=== PATIENT | female | born 1965 | race Caucasian/White ===

== ENCOUNTER 2020-04-21 12:04 | Outpatient (CLI) | payer OTHER, SELFPAY ==
--- NOTE | ~2020-04-21 | XR_ITS ---
EXAMINATION: XR knee LT 3V DATE: 04/21/2020 12:46 INDICATION: Left knee pain. TECHNIQUE: 3 views of left knee were obtained. COMPARISON: None. FINDINGS: Bone alignment is normal. No fracture. There is mild tricompartmental osteoarthritis. No kn ee joint effusion. IMPRESSION: 1. Mild left knee osteoarthritis. Reviewed, dictated and finalized at location B. ING MACHINE LOADER
--- NOTE | ~2020-04-21 | XR_ITS ---
EXAMINATION: XR finger 4th RT min 2V DATE: 04/21/2020 12:46 INDICATION: Swelling at the right fourth finger TECHNIQUE: Dorsal palmar, lateral and 2 oblique views of the right fourth digit were obtained COMPARISON: None FINDINGS: Bone alignment is normal. No fracture. Minimal to mild polyarticular osteoarthritis at multiple inter phalangeal joints. Bone islands at the distal radius and at the head of the fifth middle phalanx. No cortical erosions or periosteal reaction. Soft tissues are unremarkable. IMPRESSION: 1. Minimal to mild polyarticular osteoarthritis at the interphalangeal joints. No acute osseous abnor mality. Reviewed, dictated and finalized at location A. ND HAND IMPRESSION: 1. Minimal to mild polyarticular osteoarthritis at the interphalangeal joints. No acute osseous abnormality.
== END 2020-04-21 12:05 ==
LOC: MICIMG 12:05
PROVIDERS: PCP Family Medicine; Visit Provider Physician Assistant
DX: M17.12 Unilateral primary osteoarthritis, left knee (principal); M19.041 Primary osteoarthritis, right hand
CPT/HCPCS: 73140; 73562

== ENCOUNTER → 2020-06-26 16:12 | Outpatient (CLI) | payer OTHER, SELFPAY ==
--- NOTE | ~2020-06-26 | XR_ITS ---
EXAMINATION: XR thoracic spine 2V, XR lumbar spine 2-3V DATE: 06/26/2020 16:37 INDICATION: Dorsalgia TECHNIQUE: 1. AP, lateral and lateral swimmers views of the thoracic spine were obtained. 2. AP and lateral views of the lumbar spine and cone-down lateral view of the lumbosacral junction we re obtained. COMPARISON: None FINDINGS: Thoracic spine: Sagittal alignment is normal. 11 degree lower thoracic levoscoliosis measured between T9 and T12. Gayathri tebral body heights are normal. Multilevel mild disc height loss throughout the thoracic spine. Moder ate disc height loss at C5-C6 and mild disc height loss at C4-C5. Multiple surgical clips at the left of midline at the anterior base of the neck which may be related to prior left thyroidectomy. Parave rtebral soft tissues and visualized lungs are unremarkable. Lumbar spine: Alignment is normal. Vertebral body heights are normal. Mild disc height loss from L1-L2 through L4-L 5. Multilevel mild lumbar facet osteoarthritis. Visualized sacrum and sacroiliac joints are unremarka ble. IMPRESSION: Mild lower thoracic levoscoliosis with mild thoracic and lumbar spondylosis. Reviewed, dictated and finalized at location A. K PROCESSING CLERK IMPRESSION: Mild lower thoracic levoscoliosis with mild thoracic and lumbar spondylosis.
== END ==
PROVIDERS: Visit Provider Physician Assistant
DX: M47.896 Other spondylosis, lumbar region (principal)
CPT/HCPCS: 72070; 72100

== ENCOUNTER → 2020-11-25 17:55 | Outpatient (CLI) | payer OTHER, SELFPAY ==
--- NOTE | ~2020-11-25 | MM_ITS ---
EXAMINATION: MM scrn lester implant BI w phylicia HISTORY: Screening mammogram TECHNIQUE: Craniocaudal and mediolateral oblique 3-D tomosynthesis images with implant displacement a nd synthetic 2-D images were generated. Craniocaudal and mediolateral oblique views of the breasts wi thout implant displacement were obtained using full field digital mammography. CAD analysis was submi tted and interpreted. COMPARISON: 04/22/2014, 01/11/2013, 01/31/2011 BREAST PARENCHYMAL COMPOSITION: The breasts are heterogeneously dense, which may obscure small masses . FINDINGS: There is no evidence of suspicious mass, calcification, or architectural distortion to sugg est malignancy in either breast. There has been no suspicious interval change. IMPRESSION: 1. No mammographic evidence of malignancy. 2. Recommend routine screening mammography in one year. BI-RADS Category 1: Negative Reviewed, dictated and finalized at location A.
== END ==
PROVIDERS: PCP Family Medicine; Visit Provider Physician Assistant
DX: Z12.31 Encounter for screening mammogram for malignant neoplasm of breast (principal)
CPT/HCPCS: 77063; 77067

== ENCOUNTER 2021-04-15 10:17 | Outpatient (RCR) | payer OTHER, SELFPAY ==
[2021-04-15 13:19] VITALS: BP 86/57; PULSE 83; RESP 18; TEMP 36.4; O2SAT 95
[2021-04-15] MEDS: ACETAMINOPHEN 325 MG TABLET 650 MG PO (13:22)
[2021-04-15] MEDS: diphenhydrAMINE HCl CAP 25 MG CAPSULE PO (13:23)
[2021-04-15] MEDS: FAMOTIDINE 20 MG TABLET PO (13:23)
[2021-04-15] MEDS: SODIUM CHLORIDE 0.9% IV 500 ML IV CONT (13:55)
[2021-04-15 15:11] VITALS: BP 91/30
--- NOTE | 2021-04-16 10:42 | PC.NURSE ---
Spoke to Ms Tyler's and he stated she ate dinner last night and is sleeping currently. He said she is not complaining of any increase symptoms last night, so he thinks she is okay. I told him if she is still having issues and not improving she will need to go to the ER. He said she is fine, and thanked us for calling.
== END 2021-04-15 17:00 ==
LOC: AMCINF 10:17
PROVIDERS: PCP Family Medicine; Visit Provider Internal Medicine Hematology & Oncology
DX: U07.1 COVID-19 (principal)
CPT/HCPCS: 96360; A9270; J7040; M0243; Q0243

== ENCOUNTER 2023-04-20 19:06 | Emergency (ER) | payer OTHER, SELFPAY ==
--- NOTE | ~2023-04-20 | XR_ITS ---
EXAMINATION: XR chest 2V DATE: 04/20/2023 22:43 INDICATION: Palpitations. TECHNIQUE: Frontal and lateral views of the chest were obtained. COMPARISON: CT abdomen and pelvis 10/29/2014 FINDINGS: There is mild atelectasis in lingula. No pleural effusion or pneumothorax. The heart size i s normal. Breast implants are noted. IMPRESSION: 1. Mild atelectasis in lingula. Reviewed, dictated and finalized at location E. CAPTAIN
--- NOTE | 2023-04-20 19:07 | ECG_ITS ---
Measurements Intervals [place] Rate: 69 P: 40 GA: 177 QRS: 26 QRSD: 86 T: 37 QT: 346 QTc: 372 Interpretive Statements SINUS RHYTHM NO PREVIOUS ECG AVAILABLE FOR COMPARISON Electronically Signed On 04-20-2023 19:21:32 PLEASURE CRAFT SAILOR by Mindy Diaz M.D.
[2023-04-20 19:27] VITALS: BP 135/78; PULSE 69; RESP 16; TEMP 36.6; O2SAT 100
[2023-04-20 22:26] VITALS: PULSE 73
[2023-04-20 22:28] VITALS: BP 140/77; PULSE 63; RESP 15; O2SAT 98
[2023-04-20] MEDS: MECLIZINE HCL 25 MG TABLET PO (23:07)
[2023-04-20] MEDS: SODIUM CHLORIDE 0.9% IV 1,000 ML 999 ML IV CONT (23:08)
[2023-04-20 23:15] LABS: Basophils Absolute Auto 0.1 K/mm3 (0.0-0.1); Basophils Percent Auto 0.6 % (0.2-1.2); Eosinophils Absolute Auto 0.1 K/mm3 (0-0.3); Eosinophils Percent Auto 1.2 % (0-4.4); Hematocrit 39.6 % (37.0-47.0); Hemoglobin 12.9 g/dL (12.0-15.0); Immature Granulocyte Absolute 0.02 K/mm3 (0.00-0.031); Immature Granulocyte Percent A 0.3 % (0-0.5); Lymphocytes Absolute Auto 3.36 K/mm3 (0.9-3.2); Lymphocytes Percent Auto 43.1 % (18.3-44.2); Mean Corpuscular HGB Conc 32.6 g/dl (32-36); Mean Corpuscular Hemoglobin 29.5 pg (26-34); Mean Corpuscular Volume 90.4 fl (80-100); Mean Platelet Volume 12.2 fl (7.4-10.4); Monocytes Absolute Auto 0.5 K/mm3 (0.1-0.6); Monocytes Percent Auto 6.5 % (2.6-8.5); Neutrophils Absolute Auto 3.8 K/mm3 (1.3-6.7); Neutrophils Percent Auto 48.3 % (45.5-73.1); Platelet Count Result 170 k/mm3 (150-375); Red Blood Count 4.38 M/mm3 (4.2-5.4); Red Cell Distribution Width 13.2 % (11.5-14.5); White Blood Count 7.8 K/mm3 (4.5-10.0)
[2023-04-20 23:39] LABS: Alanine Aminotransferase 18 U/L (6-35); Albumin Level 4.5 g/dL (3.5-5.1); Alkaline Phosphatase 137 U/L (38-126); Anion Gap 6 mmol/L (8-16); Aspartate Amino Transferase 23 U/L (14-36); Bilirubin,Total 0.5 mg/dL (0.2-1.3); Blood Urea Nitrogen 18 mg/dL (7-17); Calcium 9.9 mg/dL (8.4-10.2); Carbon Dioxide 25 mmol/L (22-30); Chloride 108 mmol/L (98-107); Estimated CRCL calculation 60 ml/min; Estimated Glomerular Filt Rate > 60; Glucose 101 mg/dL (65-110); Magnesium 2.4 mg/dL (1.6-2.3); Potassium 3.9 mmol/L (3.4-5.0); Sodium 139 mmol/L (137-145)
[2023-04-20 23:51] LABS: Troponin I < 0.012 ng/mL (0.000-0.034)
--- NOTE | 2023-04-20 23:55 | ED.GENADULT ---
HPI - General Adult General Chief complaint: Arrhythmia/Palpitations Stated complaint: dizziness Time Seen by Provider: 04/20/23 22:23 History of Present Illness HPI narrative: Patient is a 57-year-old female who presents ER with feeling of palpitations. [place] like she was having a fluttering in her chest. Associated with lightheadedness. No loss of consciousness. No nausea vomiting or diaphoresis. She denies any sinus congestion or sore throat or cough. No chest pain or chest pressure. Has not had similar symptoms previously. Related Data Allergies Allergy/AdvReac Type Severity Reaction Status Date / Time Penicillins Allergy Unknown Nausea Verified 04/20/23 22:28 sertraline Allergy Unknown unknown Verified 04/20/23 22:28 Review of Systems Review of Systems: All systems reviewed & are unremarkable except as noted in HPI and below Constitutional: Constitutional: Reports no additional constitutional complaints ENT: Reports dizziness, Denies nasal congestion and Denies sore throat Cardiovascular: Cardiovascular: Denies chest pain, Reports rapid heart rate and Denies radiating jaw, neck or arm pain Respiratory: Respiratory: Reports no additional respiratory complaints Gastrointestinal: Gastrointestinal: Reports no additional gastrointestinal complaints Genitourinary: Genitourinary: Reports no additional female genitourinary complaints [facility] Past Medical History Medical History (Updated 04/21/23 @ 00:13 by Kendrick Akhtar MD) TASHA (generalized anxiety disorder) Insomnia MDD (major depressive disorder) Surgical History Surgical History (Updated 04/20/23 @ 23:56 by Kendrick Akhtar MD) No pertinent past surgical history Family History Family History Other Cerebrovascular accident Diabetes mellitus Family history of arthritis Family history of glaucoma Hypertension Social History Social History Smoking packs per day: 1 Smoking cigarettes per day: 20.0 Years smoked: 25 Smoking pack-years: 25.00 Smoking status: Former smoker Tobacco type: cigarettes Second hand tobacco smoke exposure: No Smoking end date: 05/15/00 Alcohol intake: current Alcohol use details: rare Substance use: never Substance use type: does not use Living arrangements: with family Occupation/Education: occupation Gender identity (if verbalized by the patient): Female Spiritual care concerns: No Exam Narrative: GENERAL: Well-appearing, well-nourished, and in no acute distress. HEAD: Normocephalic, atraumatic. ENT: Mucous membranes moist. TMs normal bilaterally. NECK: Supple. CHEST: Clear to auscultation. No respiratory distress. HEART: Regular rate and rhythm. Normal peripheral pulses. ABDOMEN: Soft, nontender, nondistended. EXTREMITIES: Normal range of motion. No edema. SKIN: Warm, dry, no rash. NEURO: Alert and oriented x3. PSYCH: Normal mood and affect. Course Vital Signs Vital signs: Vital Signs Temperature 98 F 04/20/23 19:27 Pulse Rate 69 04/20/23 19:27 Respiratory Rate 16 04/20/23 19:27 Blood Pressure 135/78 04/20/23 19:27 Pulse Oximetry 100 04/20/23 19:27 Oxygen Delivery Room Air 04/20/23 19:27 Temperature 98 F 04/20/23 19:27 Pulse Rate 63 04/20/23 22:28 Respiratory Rate 15 04/20/23 22:28 Blood Pressure 140/77 04/20/23 22:28 Pulse Oximetry 98 04/20/23 22:28 Oxygen Delivery Room Air 04/20/23 19:27 Medical Decision Making Vital Signs Vital Signs: Vital Signs Temperature 98 F 04/20/23 19:27 Pulse Rate 69 04/20/23 19:27 Respiratory Rate 16 04/20/23 19:27 Blood Pressure 135/78 04/20/23 19:27 Pulse Oximetry 100 04/20/23 19:27 Oxygen Delivery Room Air 04/20/23 19:27 Temperature 98 F 04/20/23 19:27 Pulse Rate 63 04/20/23 22:28 Respiratory Rate 15 04/20/23 22:28
== END 2023-04-21 00:35 | disposition home or self-care (01) ==
PROVIDERS: Emergency Provider Emergency Medicine; PCP Family Medicine
DX: R00.2 Palpitations (principal); R42 Dizziness and giddiness; F41.1 Generalized anxiety disorder; F32.9 Major depressive disorder, single episode, unspecified; Z87.891 Personal history of nicotine dependence
CPT/HCPCS: 36415; 71046; 80053; 83735; 84484; 85025; 93005; 96360; 99284; A9270; J7030